=== PATIENT | female | born 1975 | race African-American/Black ===

== ENCOUNTER 2017-01-21 17:44 | Emergency (ER) | payer SELFPAY ==
[~2017-01-21] VITALS: Ht 160 cm; Wt 71.0 kg
[~2017-01-21 17:44] MED LIST: IBUP800T23 PO; ULTR50TA PO; Z.0.NO CURRENT MEDS
[2017-01-21 17:46] VITALS: BP 148/104; PULSE 66; RESP 16; TEMP 99.2; O2SAT 100
[2017-01-21 19:16] VITALS: BP 175/98; PULSE 63; RESP 16; TEMP 97.9; O2SAT 99
[2017-01-21] MEDS ORDERED: SODIUM CHLOR 0.9% 1000 ML INJ 1,000 ML IV ONE (19:30)
[2017-01-21] MEDS ORDERED: PROCHLORPERAZINE INJ 10 MG/2 ML VIAL IV PUSH ONE (19:30)
[2017-01-21] MEDS ORDERED: diphenhydrAMINE HCL 50 MG/ML VIAL IV PUSH ONE (19:30)
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
[2017-01-21 21:14] VITALS: BP 159/104; TEMP 98.5
== END 2017-01-21 21:26 | disposition home or self-care (01) ==
LOC: NEPD 17:44
DX: B34.9 Viral infection, unspecified (principal); I10 Essential (primary) hypertension; R56.9 Unspecified convulsions
CPT/HCPCS: 96374; 96375; 99284; J0780; J1200; J7030